=== PATIENT | female | born 1970 | race Caucasian/White ===

== ENCOUNTER 2018-11-16 10:51 | Inpatient (IN) | payer OTHER ==
[~2018-11-16 10:51] MED LIST: DESFLURANE 15 MIN; SUCCINYLCHOLINE CHLORIDE 100 MG/5 ML SYG IV
[2018-11-16] MEDS ORDERED: ROCURONIUM 50 MG INJ (13:25)
[2018-11-16] MEDS ORDERED: LIDOCAINE 2% (SDV) 5 ML INJ (13:25)
[2018-11-16] MEDS ORDERED: PROPOFOL 20 ML (13:25)
[2018-11-16] MEDS ORDERED: MIDAZOLAM 1 MG/ML 2 ML INJ (13:25)
[2018-11-16] MEDS ORDERED: HEPARIN 1000 UNITS/ML 10 ML INJ (14:28)
[2018-11-16] MEDS ORDERED: ACETAMINOPHEN 325 MG TAB PO (14:30)
[2018-11-16] MEDS ORDERED: NALOXONE (0.4 MG/ML) INJ IV (14:30)
[2018-11-16] MEDS ORDERED: HYDROmorphONE 0.5 MG/0.5 ML SYG IV (14:30)
[2018-11-16] MEDS ORDERED: ONDANSETRON 4 MG INJ IV (14:30)
[2018-11-16] MEDS ORDERED: CEPASTAT LOZENGE MT (14:30)
[2018-11-16] MEDS ORDERED: CYCLOBENZAPRINE 10 MG TAB PO (14:30)
[2018-11-16] MEDS ORDERED: BISACODYL 10 MG SUPP PR (14:30)
[2018-11-16] MEDS ORDERED: DIPHENHYDRAMINE 50 MG INJ IV (14:30)
[2018-11-16] MEDS ORDERED: DIPHENHYDRAMINE 25 MG CAP PO (14:30)
[2018-11-16] MEDS ORDERED: AL HYDROX/MG HYDROX/SIMETH 30 ML CUP PO (14:30)
[2018-11-16] MEDS ORDERED: CEFAZOLIN 1 GM INJ (14:53)
[2018-11-16] MEDS ORDERED: ONDANSETRON 4 MG INJ (14:55)
[2018-11-16] MEDS ORDERED: DEXAMETHASONE 4 MG/ML 5 ML INJ (14:55)
[2018-11-16] MEDS ORDERED: FENTAnyl 50 MCG/ML VIAL (15:26)
[2018-11-16] MEDS: BUPIVACAINE 0.5%/EPI (SDV) 30 ML INJ (15:32)
[2018-11-16] MEDS: POLYMYXIN/BACITRACIN 1L IRRIG (15:33)
[2018-11-16] MEDS: GELATIN SIZE 100 SPONGE (16:54)
[2018-11-16] MEDS: SURGIFOAM POWDER 1 GM KIT (16:54)
[2018-11-16] MEDS: THROMBIN 5000 UNIT VIAL ×2 (16:55)
[2018-11-16] MEDS ORDERED: GLYCOPYRROLATE 0.4 MG INJ (17:14)
[2018-11-16] MEDS ORDERED: NEOSTIGMINE 3 MG/3 ML SYRINGE (17:14)
[2018-11-16] MEDS ORDERED: LABETALOL HCL 20MG INJ IV (17:30)
[2018-11-16] MEDS: HYDROmorphONE 1 MG/5 ML IV SYRINGE IV ×3 (17:35→18:09)
[2018-11-16] MEDS: CEFAZOLIN 1 GM/50 ML (PMX) 50 ML IVPB ×2 (17:36→23:13)
[2018-11-16] MEDS: ONDANSETRON 4 MG INJ IV (17:36)
[2018-11-16] MEDS: HYDROmorphONE 0.2 MG/ML PCA IV (17:50)
[2018-11-16] MEDS: D5W-0.45 NACL + KCL 20 MEQ 1,000 ML IV (20:40)
[2018-11-16] MEDS: DOCUSATE SODIUM 100 MG CAP PO (22:14)
[2018-11-17] MEDS: D5W-0.45 NACL + KCL 20 MEQ 1,000 ML IV ×2 (00:18→06:54)
[2018-11-17 04:53] LABS: ADD MAN DIFF? NO
[2018-11-17 04:57] LABS: BASOPHILS % 0.1 % (0.0-2.0); HEMATOCRIT 38.2 % (37.0-47.0); HEMOGLOBIN 12.5 g/dl (12.0-16.0); LYMPHOCYTES # 0.9 10^3/ul (0.8-2.9); LYMPHOCYTES % 7.8 % (15.0-51.0); MEAN CORPUSCULAR HEMOGLOBIN 28.5 pg (29.0-33.0); MEAN CORPUSCULAR HGB CONC 32.7 g/dl (32.0-37.0); MEAN CORPUSCULAR VOLUME 87.2 fl (82.0-101.0); MEAN PLATELET VOLUME 10.4 fl (7.4-10.4); MONOCYTE # 0.5 10^3/ul (0.3-0.9); MONOCYTES % 4.5 % (0.0-11.0); NEUTROPHIL # 9.5 10^3/ul (1.6-7.5); NEUTROPHILS % 87.1 % (39.0-77.0); PLATELET COUNT 231 10^3/UL (140-415); RED BLOOD COUNT 4.38 10^6/ul (4.20-5.40); RED CELL DISTRIBUTION WIDTH 13.5 % (11.5-14.5)
[2018-11-17 04:57] LABS: WHITE BLOOD COUNT 10.9 10^3/ul (4.8-10.8)
[2018-11-17 05:42] LABS: ANION GAP 15 (5-13); BLOOD UREA NITROGEN 16 mg/dl (7-20); CARBON DIOXIDE 24 mmol/L (21-31); CHLORIDE 99 mmol/L (97-110); CREATININE 0.58 mg/dl (0.44-1.00); Estimated GFR > 60 mL/min (>60); GLUCOSE 152 mg/dl (70-220); MAGNESIUM 1.8 mg/dl (1.7-2.5); POTASSIUM 4.3 mmol/L (3.5-5.1); SODIUM 138 mmol/L (135-144)
[2018-11-17] MEDS: PANTOPRAZOLE 40 MG INJ IV (06:01)
[2018-11-17] MEDS: CEFAZOLIN 1 GM/50 ML (PMX) 50 ML IVPB (06:04)
[2018-11-17] MEDS: DOCUSATE SODIUM 100 MG CAP PO (09:16)
[2018-11-17] MEDS: HYDROCODONE/APAP (10/325) TAB PO ×2 (09:37→13:44)
[2018-11-17] MEDS ORDERED: HYDROCODONE/APAP (10/325) TAB PO (10:00)
[2018-11-18] MEDS ORDERED: PANTOPRAZOLE (EC) 40 MG TAB PO (06:00)
== END 2018-11-17 20:45 | disposition home or self-care (01) | DRG 473 ==
LOC: REC 10:51 → MS1 20:01
PROC: 0RG20A0 Fusion of 2 or more Cervical Vertebral Joints with Interbody Fusion Device, Anterior Approach, Anterior Column, Open Approach (ICD-10-PCS; principal; 2018-11-16 12:00)
PROC: 0RT30ZZ Resection of Cervical Vertebral Disc, Open Approach (ICD-10-PCS; 2018-11-16 12:00)
PROC: 4A11X4G Monitoring of Peripheral Nervous Electrical Activity, Intraoperative, External Approach (ICD-10-PCS; 2018-11-16 12:00)
DX: M50.122 Cervical disc disorder at C5-C6 level with radiculopathy (principal); M48.02 Spinal stenosis, cervical region
CPT/HCPCS: 72040; 80048; 83735; 84703; 85025; 88304; 97116; 97162; 97530